=== PATIENT | male | born 1940 | race Caucasian/White ===

== ENCOUNTER 2018-04-20 05:49 | Day surgery (SDC) | payer OTHER ==
[~2018-04-20 05:49] MED LIST: FOSINOPRIL SODI40 MG PO; HYDROCHLOROTH12.5 M1 PO; ISOSORBIDE MONO60 MG PO; LIPITOR40 MG PO; NITROSTAT0.4 MG SL; NORVASC2.5 M1 PO; TENORMIN50 M1 PO
[2018-04-20] MEDS ORDERED: NUPERCAINAL56.7 GM TOP (09:05)
[2018-04-20] MEDS ORDERED: PERCOCET 5-3251 EACH PO (09:05)
== END 2018-04-20 12:25 | disposition home or self-care (01) ==
LOC: CIR.AMB 05:49
DX: D12.8 Benign neoplasm of rectum (principal)